=== PATIENT | male | born 1990 | race Caucasian/White ===

== ENCOUNTER 2019-08-15 03:34 | Emergency (ER) | payer OTHER ==
[2019-08-15 04:33] LABS: Amphetamine Screen,Urine Not Detected (NotDetected); Barbiturate Screen,Urine Not Detected (NotDetected); Benzodiazepines Screen,Urine Not Detected (NotDetected); Cocaine Screen,Urine Not Detected (NotDetected); Methadone Screen, Urine Not Detected (NotDetected); Opiate Screen,Urine Not Detected (NotDetected); Oxycodone Screen, Urine Not Detected (NotDetected); Phencyclidine Screen,Urine Not Detected (NotDetected); Tricyclic Antidepressant,Urine Not Detected (NotDetected); Urn Cannabinoid Scrn Not Detected (NotDetected)
[2019-08-15 05:47] VITALS: RESP 18; TEMP 98.2
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
[2019-08-15 06:38] VITALS: BP 121/65; PULSE 99
[2019-08-15] MEDS ORDERED: ACETAMINOPHEN TAB 325 MG TAB PO STA (06:41)
== END 2019-08-15 06:50 | disposition home or self-care (01) ==
LOC: EC 03:34
DX: F10.129 Alcohol abuse with intoxication, unspecified (principal); F12.929 Cannabis use, unspecified with intoxication, unspecified; F17.200 Nicotine dependence, unspecified, uncomplicated; Y90.9 Presence of alcohol in blood, level not specified
CPT/HCPCS: 80306; 99284